=== PATIENT | male | born 2000 | race Caucasian/White ===

== ENCOUNTER 2021-07-06 11:57 | Emergency (ER) | payer MEDICAID, SELFPAY ==
[2021-07-06 12:06] VITALS: BP 117/65; PULSE 68; RESP 16; TEMP 36.6; O2SAT 99; BMI 20.9
--- NOTE | 2021-07-06 13:06 | ED.GENADULT ---
HPI - General Adult General Chief complaint: Upper Respiratory Symptoms Stated complaint: difficulty breathing, sore throat Time Seen by Provider: 07/06/21 12:36 Source: patient Mode of arrival: ambulatory Limitations: no limitations History of Present Illness HPI narrative: 20-year-old male presenting to the ER with sore throat for the last three or 4 days. He reports he was recently treated with antibiotics and completed treatment about 1 week ago. He was treated with amoxicillin. He states he had brief improvement but the pain came right back a few days after he was off antibiotics. He also had increased throat and tonsil pain at the beginning of the summer and needed antibiotics at that time too. He has a history of seasonal allergies and takes Claritin as needed. He has bilateral ear pain and runny nose. He has no shortness of breath, cough, fever, chills, difficulty swallowing or eating. MD complaint: Sore throat Onset (ago): day(s) (4) Location: mouth and neck Radiation: non-radiation Severity: moderate Severity scale (1-10): 7 Quality: stabbing and sharp Pain Consistency: constant Relieving factors: none Exacerbating factors: eating Associated symptoms: headaches and other (Ear pain) Treatments prior to arrival: none Related Data Previous Rx's Medication Instructions Recorded amoxicillin 875 mg-potassium 1 tab PO BID #20 tab 07/06/21 clavulanate 125 mg tablet (Augmentin) fluticasone propionate 50 1 spray INTRANASAL BID #16 g 07/06/21 mcg/actuation nasal spray,suspension (Flonase Allergy Relief) Allergies Allergy/AdvReac Type Severity Reaction Status Date / Time No Known Allergies Allergy Unverified 05/28/20 17:01 [No Known Allergies*] Review of Systems Review of Systems: Constitutional: No Fever, No Chills ENT/Mouth: + sore throat, No Rhinorrhea, No Swallowing Difficulty, +painful swallowing, +ear pain, No hearing loss Cardiovascular: No Chest Pain, No SO Respiratory: No Cough, No Sputum Gastrointestinal: No Nausea, No Vomiting Skin: No Skin Lesions, No rash Neuro:No Dizziness, + Headache Heme/Lymph: No Lymphadenopathy PMFSH Social History Social History Advance Directives: No Advance Directives Information Provided: Yes Physical Exam Vital Signs: Vital Signs: Last Vital Signs Temp 97.9 F 07/06/21 12:06 Pulse 68 07/06/21 12:06 Resp 16 07/06/21 12:06 BP 117/65 07/06/21 12:06 Pulse Ox 99 07/06/21 12:06 Body Mass Index 20.9 Appearance: Alert. Oriented X3. No acute distress. Eyes: Pupils equal, round and reactive to light. ENT: Pharynx with bilateral tonsillar enlargement, erythema, exudate present on the right tonsil. Uvula is midline. Normal voice, handling secretions normally. No appreciated peritonsillar abscess Neck: Normal inspection. Neck supple. No lymphadenopathy CVS: Normal heart rate and rhythm. Pulses normal. Respiratory: No respiratory distress. Breath sounds normal. Skin: Skin warm and dry. Normal skin color. Normal skin turgor. No rashes. Extremities: No lower extremity edema. Neuro: Oriented X 3. Well-kempt grossly normal Course Course Course Narrative: 20-year-old male presenting with recurrent pharyngitis. His exam is consistent with strep pharyngitis. No appreciated abscess on exam. He has no signs of COVID-19. Will plan to treat empirically, will start Augmentin for 10 days given his recent amoxicillin use. Will refer to ENT for evaluation of possible tonsillectomy. Stable for discharge home with outpatient follow-up. Critical Care Time Critical Care Time Critical Care Time: No Discharge Plan Discharge Clinical Impression: Pharyngitis Qualifiers: Pharyngitis/tonsillitis etiology: unspecified etiology Qualified Code(s): J02.9 - Acute pharyngitis, unspecified Patient Disposition: Home, Self-Care Instructions: Pharyngitis (ED) Additional Instructions: Take the prescribed antibiotic as directed for 10 full days. Use warm saltwater gargles several times a day. Recommend [id number] Chloraseptic spray and septic call lozenges to help with sore throat and pain Take Motrin 600 every 8 hours as needed for pain Recommend taking her Claritin every day for the next 2 weeks Use the prescribed nasal steroid to help with runny nose and postnasal drip. Recommend following up with ENT Recommend following up with your doctor as needed. Prescriptions: New amoxicillin-pot clavulanate [Augmentin] 875-125 mg tablet 1 tab PO BID Qty: 20 RF: 0 fluticasone propionate [Flonase Allergy Relief] 50 mcg/actuation spray,suspension 1 spray intranasal BID Qty: 16 RF: 0 Referrals: Naeem Christianson [Physician] - 1 week (recurrent strep pharyngitis, tonsillar enlargement)
== END 2021-07-06 13:19 | disposition home or self-care (01) ==
PROVIDERS: Emergency Provider Emergency Medicine
DX: J02.9 Acute pharyngitis, unspecified (principal)
CPT/HCPCS: 99283